=== PATIENT | female | born 2000 | race Caucasian/White ===

== ENCOUNTER 2023-01-02 21:40 | Emergency (ER) | payer OTHER ==
[~2023-01-02] VITALS: Ht 167.6 cm; Wt 65.8 kg
[2023-01-02 23:30] VITALS: BP 93/47
[2023-01-02] MEDS ORDERED: CYCL10 PO (23:37)
[2023-01-02] MEDS ORDERED: HYDR1TAB94 PO (23:37)
== END 2023-01-02 23:48 | disposition home or self-care (01) ==
LOC: ER 21:40
DX: S16.1XXA Strain of muscle, fascia and tendon at neck level, initial encounter (principal); S29.012A Strain of muscle and tendon of back wall of thorax, initial encounter; S01.131A Puncture wound without foreign body of right eyelid and periocular area, initial encounter; V47.6XXA Car passenger injured in collision with fixed or stationary object in traffic accident, initial encounter
CPT/HCPCS: 70450; 72125; 72128; 96374; 96375; 99284-25; A9270; J2405; J3010

== ENCOUNTER 2023-11-04 22:03 | Emergency (ER) | payer OTHER ==
[~2023-11-04] VITALS: Ht 170.2 cm; Wt 63.5 kg
[~2023-11-04 22:03] MED LIST: CYCL10 PO; HYDR1TAB94 PO
[2023-11-04 22:05] VITALS: BP 105/61
[2023-11-04 22:27] LABS: BASOPHILS ABSOLUTE AUTO 0.06 K/mm3 (0.00-0.23); BASOPHILS PERCENT AUTO 1 % (0-2); EOSINOPHILS ABSOLUTE AUTO 0.21 K/mm3 (0.00-0.68); EOSINOPHILS PERCENT AUTO 2 % (0-6); Hematocrit 37.6 % (33.0-51.0); Hemoglobin 13.1 g/dL (11.5-16.0); IMMATURE GRAN ABSOLUTE AUTO 0.04 K/mm3 (0.00-0.10); IMMATURE GRAN PERCENT AUTO 0 % (0-1); LYMPHOCYTES ABSOLUTE AUTO 4.09 K/mm3 (0.84-5.20); LYMPHOCYTES PERCENT AUTO 32 % (21-46); MONOCYTES ABSOLUTE AUTO 1.12 K/mm3 (0.16-1.47); MONOCYTES PERCENT AUTO 9 % (4-13); Mean Corpuscular HGB 31.4 pg (26.0-34.0); Mean Corpuscular HGB Conc 34.8 g/dL (31.5-36.5); Mean Corpuscular Volume 90 fL (80-100); Mean Platelet Volume 9.6 fL (9.1-12.4); NEUTROPHILS ABSOLUTE AUTO 7.41 K/mm3 (1.96-9.15); NEUTROPHILS PERCENT AUTO 57 % (41-73); Platelet Count 251 K/mm3 (150-400); RDW Coefficient Variation 12.3 % (11.7-14.2); RDW Standard Deviation 40.6 fL (35.1-46.3); Red Blood Cell Count 4.17 M/mm3 (3.80-5.20); White Blood Cell Count 12.93 K/mm3 (4.00-11.30)
[2023-11-04 22:46] LABS: Albumin, Blood 3.8 g/dL (3.4-5.0); Albumin/Globulin Ratio 1.3 (0.8-1.8); Bilirubin, Total 0.2 mg/dL (0.1-1.0); Bun/Creatinine Ratio 18.3 (12.0-20.0); Calcium, Blood 8.8 mg/dL (8.5-10.1); Creatinine, Blood 0.71 mg/dL (0.40-1.00); Potassium, Blood 4.1 mmol/L (3.5-5.5); Total Protein, Blood 6.8 g/dL (6.4-8.2)
== END 2023-11-05 00:32 | disposition left against medical advice (07) ==
LOC: ER 22:03
PROVIDERS: Student in an Organized Health Care Education/Training Program
DX: Z53.21 Procedure and treatment not carried out due to patient leaving prior to being seen by health care provider (principal)
CPT/HCPCS: 80053; 85025; 99281

== ENCOUNTER 2024-05-11 20:08 | Emergency (ER) | payer SELFPAY ==
[~2024-05-11] VITALS: Ht 170.2 cm; Wt 63.5 kg
[2024-05-11] MEDS ORDERED: PRENATAL TABLE1 EAC2 PO (20:18)
[2024-05-11] MEDS ORDERED: Ondansetron HCl 2 MG / ML 2ML Vial IV ONE (20:40)
[2024-05-11] MEDS ORDERED: NS 1,000 ML IV SCH ×2 (20:40→21:30)
[2024-05-11 20:56] LABS: BASOPHILS ABSOLUTE AUTO 0.04 K/mm3 (0.00-0.23); BASOPHILS PERCENT AUTO 0 % (0-2); EOSINOPHILS ABSOLUTE AUTO 0.02 K/mm3 (0.00-0.68); EOSINOPHILS PERCENT AUTO 0 % (0-6); Hematocrit 37.5 % (33.0-51.0); Hemoglobin 13.4 g/dL (11.5-16.0); IMMATURE GRAN ABSOLUTE AUTO 0.07 K/mm3 (0.00-0.10); IMMATURE GRAN PERCENT AUTO 0 % (0-1); LYMPHOCYTES ABSOLUTE AUTO 1.63 K/mm3 (0.84-5.20); LYMPHOCYTES PERCENT AUTO 9 % (21-46); MONOCYTES ABSOLUTE AUTO 0.95 K/mm3 (0.16-1.47); MONOCYTES PERCENT AUTO 5 % (4-13); Mean Corpuscular HGB 31.8 pg (26.0-34.0); Mean Corpuscular HGB Conc 35.7 g/dL (31.5-36.5); Mean Corpuscular Volume 89 fL (80-100); Mean Platelet Volume 9.4 fL (9.1-12.4); NEUTROPHILS ABSOLUTE AUTO 15.55 K/mm3 (1.96-9.15); NEUTROPHILS PERCENT AUTO 85 % (41-73); Platelet Count 247 K/mm3 (150-400); RDW Coefficient Variation 12.4 % (11.7-14.2); RDW Standard Deviation 40.5 fL (35.1-46.3); Red Blood Cell Count 4.22 M/mm3 (3.80-5.20); White Blood Cell Count 18.26 K/mm3 (4.00-11.30)
[2024-05-11 21:15] LABS: Albumin, Blood 3.8 g/dL (3.4-5.0); Albumin/Globulin Ratio 1.1 (0.8-1.8); Bilirubin, Total 0.7 mg/dL (0.1-1.0); Bun/Creatinine Ratio 14.8 (12.0-20.0); Calcium, Blood 9.3 mg/dL (8.5-10.1); Creatinine, Blood 0.61 mg/dL (0.40-1.00); Globulin, Blood 3.4 g/dL (2.2-4.0); Potassium, Blood 3.5 mmol/L (3.5-5.5); Total Protein, Blood 7.2 g/dL (6.4-8.2)
[2024-05-11] MEDS ORDERED: RX Prepack 2 Tabs Ondansetron ODT 4MG UD ONE (22:15)
[2024-05-11] MEDS ORDERED: ONDA4ODT MM (22:16)
[2024-05-11 22:19] VITALS: BP 111/68
== END 2024-05-11 22:22 | disposition home or self-care (01) ==
LOC: ER 20:08
PROVIDERS: Physician Assistant
DX: O21.0 Mild hyperemesis gravidarum (principal); Z3A.10 10 weeks gestation of pregnancy; Z79.899 Other long term (current) drug therapy
CPT/HCPCS: 80053; 85025; 96374; 99284-25; A9270; J2405; J7030

== ENCOUNTER 2024-11-29 09:04 | Inpatient (IN) | payer SELFPAY ==
[~2024-11-29] VITALS: Ht 170.2 cm; Wt 83.0 kg
[2024-11-29] VITALS (48 sets, daily range): BP systolic 86–140; BP diastolic 50–83
[~2024-11-29 09:04] MED LIST changes: +ONDA4ODT MM; +PRENATAL TABLE1 EAC2 PO
[2024-11-29] MEDS ORDERED: FAMOTIDINE (12:08)
[2024-11-29] MEDS ORDERED: Methylergonovine Maleate 0.2MG / ML 1ML Amp IM PRN (12:10)
[2024-11-29] MEDS ORDERED: Tranexamic Acid 100 ML IV SCH (12:10)
[2024-11-29] MEDS ORDERED: OXYTOCIN/RINGER'S LACTATE 500 ML IV PRN (12:10)
[2024-11-29] MEDS ORDERED: Carboprost Tromethamine 250 MCG/ML 1ML Amp IM PRN (12:10)
[2024-11-29] MEDS ORDERED: Ondansetron HCl 2 MG / ML 2ML Vial IV PRN (12:10)
[2024-11-29] MEDS ORDERED: Oxytocin 10 Unit / ML Vial IM PRN (12:10)
[2024-11-29] MEDS ORDERED: FentaNYL 2mcg/ml-Bup 0.1% Epd 250 ML EPI PRN (12:15)
[2024-11-29] MEDS ORDERED: ePHEDrine Sulfate 50 MG/ML 1ML Injection XX PRN (12:15)
[2024-11-29] MEDS ORDERED: FentaNYL Citrate 50 MCG/ML 2 ML Injection ONE (12:18)
[2024-11-29] MEDS ORDERED: FentaNYL Citrate 50 MCG/ML 2 ML Injection IV PRN (12:20)
[2024-11-29 12:22] LABS: BASOPHILS ABSOLUTE AUTO 0.05 K/mm3 (0.00-0.23); BASOPHILS PERCENT AUTO 0 % (0-2); EOSINOPHILS ABSOLUTE AUTO 0.04 K/mm3 (0.00-0.68); EOSINOPHILS PERCENT AUTO 0 % (0-6); Hematocrit 42.6 % (33.0-51.0); Hemoglobin 14.6 g/dL (11.5-16.0); IMMATURE GRAN ABSOLUTE AUTO 0.11 K/mm3 (0.00-0.10); IMMATURE GRAN PERCENT AUTO 1 % (0-1); LYMPHOCYTES ABSOLUTE AUTO 2.82 K/mm3 (0.84-5.20); LYMPHOCYTES PERCENT AUTO 17 % (21-46); MONOCYTES ABSOLUTE AUTO 1.18 K/mm3 (0.16-1.47); MONOCYTES PERCENT AUTO 7 % (4-13); Mean Corpuscular HGB Conc 34.3 g/dL (31.5-36.5); Mean Corpuscular Volume 90 fL (80-100); NEUTROPHILS ABSOLUTE AUTO 12.02 K/mm3 (1.96-9.15); NEUTROPHILS PERCENT AUTO 74 % (41-73); NRBC ABSOLUTE 0.00 K/mm3 (0.00-0.02); NRBC Auto 0.0 /100 WBC (0.0-0.2); Platelet Count 224 K/mm3 (150-400); RDW Coefficient Variation 12.5 % (11.7-14.2); RDW Standard Deviation 41.0 fL (35.1-46.3)
[2024-11-30] VITALS (25 sets, daily range): BP systolic 98–132; BP diastolic 53–81
[2024-11-30] MEDS ORDERED: Ketorolac Tromethamine 30mg Vial IV PRN (03:40)
[2024-11-30] MEDS ORDERED: Witch Hazel/Glycerin PADS TOP PRN (03:45)
[2024-11-30] MEDS ORDERED: Carboprost Tromethamine 250 MCG/ML 1ML Amp IM PRN (03:45)
[2024-11-30] MEDS ORDERED: Benzocaine Topical Anesthetic Spray 60GM TOP PRN (03:45)
[2024-11-30] MEDS ORDERED: OXYTOCIN/RINGER'S LACTATE 500 ML IV SCH (03:45)
[2024-11-30] MEDS ORDERED: Prenatal Vit/FE Fumarate/FA 1 Tab PO SCH (09:00)
[2024-11-30] MEDS ORDERED: Rho(D) Immune Globulin 300 MCG / SYR IV ONE (14:35)
[2024-12-01 03:56] VITALS: BP 91/53
[2024-12-01 09:01] VITALS: BP 94/50
[2024-12-01] MEDS ORDERED: ACET500 PO (09:24)
[2024-12-01] MEDS ORDERED: IBUP800 PO (09:24)
--- NOTE | 2024-12-01 10:38 | NUR ---
D/C MOM TO BORDER STATUS. D/C INSTRUCTIONS DISCUSSED. PT VERBALIZED UNDERSTANDING. PT UP AND WALKING BACK AND FORTH TO SCN. TOLERATING WELL. MEDS W[facility] SENT [facility] BY DR MUELLER.
== END 2024-12-01 10:30 | disposition home or self-care (01) | DRG 807 ==
LOC: OBS 09:04 → BC 09:04 → OBS 12:04 → BC 12:05
PROVIDERS: ADMIT Family Medicine
PROC: 4A1HXCZ Monitoring of Products of Conception, Cardiac Rate, External Approach (ICD-10-PCS; 2024-11-29)
PROC: 10E0XZZ Delivery of Products of Conception, External Approach (ICD-10-PCS; principal; 2024-11-30)
PROC: 10907ZC Drainage of Amniotic Fluid, Therapeutic from Products of Conception, Via Natural or Artificial Opening (ICD-10-PCS; 2024-11-30)
PROC: 0UQMXZZ Repair Vulva, External Approach (ICD-10-PCS; 2024-11-30)
PROC: 3E0334Z Introduction of Serum, Toxoid and Vaccine into Peripheral Vein, Percutaneous Approach (ICD-10-PCS; 2024-11-30)
DX: O26.893 Other specified pregnancy related conditions, third trimester (principal); Z37.0 Single live birth; Z67.41 Type O blood, Rh negative; Z3A.38 38 weeks gestation of pregnancy; Z87.891 Personal history of nicotine dependence; O99.62 Diseases of the digestive system complicating childbirth; K21.9 Gastro-esophageal reflux disease without esophagitis; O71.82 Other specified trauma to perineum and vulva; Z23 Encounter for immunization
CPT/HCPCS: 36415; 51702; 59025; 85025; 85460; 86850; 86900; 86901; 90471; 90707; 99214; A9270; J1885; J2405; J2791; J3010; J7120